=== PATIENT | male | born 1965 | race American Indian/Alaskan Native ===

== ENCOUNTER 2019-05-15 12:48 | Emergency (ER) | payer MEDICARE ==
[2019-05-15 13:46] VITALS: BP 136/79
--- NOTE | 2019-05-15 13:48 | Event Note ---
ED Screening Note Date of service: 05/15/19 Time: 13:44 ED Screening Note: This is a 54 y.o. M. that presents to the ER with abdominal pain and tarry stools for months. Patient states he noticed change in stools with binders. He stopped taking binders PMH of ESRD on dialysis MWF and HTN This initial assessment/diagnostic orders/clinical plan/treatment(s) is/are subject to change based on patients health status, clinical progression and re- assessment by fellow clinical providers in the ED. Further treatment and workup at subsequent clinical providers discretion. Patient/guardian urged not to elope from the ED as their condition may be serious if not clinically assessed and managed. Initial orders include: Labs
[2019-05-15 15:22] LABS: Basophils % (Auto) 0.6 % (0.0-1.8); Eosinophils # (Auto) 0.1 K/mm3 (0.0-0.4); Eosinophils % (Auto) 1.4 % (0.0-4.3); Hematocrit 36.5 % (35.5-45.6); Lymphocytes # (Auto) 2.4 K/mm3 (1.2-5.4); Lymphocytes % (Auto) 34.7 % (13.4-35.0); Mean Corpuscular HGB Conc 33 % (32-34); Mean Corpuscular Volume 91 fl (84-94); Monocytes # (Auto) 0.7 K/mm3 (0.0-0.8); Platelet Count 227 K/mm3 (140-440); Red Blood Count 4.02 M/mm3 (3.65-5.03); Red Cell Distribution Width 16.1 % (13.2-15.2)
--- NOTE | 2019-05-15 15:48 | Emergency Department Report ---
Chief Complaint: Abdominal Pain Stated Complaint: ABDOMINAL PAIN/BLOOD STOOL Time Seen by Provider: 05/15/19 13:44 - HPI History of Present Illness: Mr. Molina is a 54 yo male with hx of ESRD on HD, HTN who presents with dark stools and epigastric abdominal pian for several years. He was investigated with colonoscopy. He was diagnosed with colonic polyps. Recommended high-fiber diet. I do not suspect acute GI blood loss from Mr. Molina presentation. H&H normal. Referred to GI. MSE completed. - Exam Vital Signs: Vital Signs 05/15/19 13:44 Temperature 98.2 F Pulse Rate 68 Respiratory 18 Rate Blood Pressure 136/79 O2 Sat by Pulse 96 Oximetry MSE screening note: Focused history and physical exam performed. Due to findings the following was ordered: ED Medical Decision Making - Lab Data Result diagrams: 05/15/19 14:50 ED Disposition for MSE Clinical Impression: Encounter for medical screening examination Disposition: - MED SCREENING EXAM-LEFT Condition: Stable Referrals: AMILCAR FLYNN MD [Staff Physician] - 3-5 Days
[2019-05-15 15:57] LABS: Calcium 9.4 mg/dL (8.4-10.2)
== END 2019-05-15 16:59 | disposition left against medical advice (07) ==
LOC: ED 12:48
DX: R10.13 Epigastric pain (principal); R10.9 Unspecified abdominal pain; Z00.01 Encounter for general adult medical examination with abnormal findings
CPT/HCPCS: 36415; 80053; 85025; 99283